=== PATIENT | male | born 1985 | race Caucasian/White ===

== ENCOUNTER 2019-01-01 11:37 | Emergency (ER) | payer MEDICAID ==
[~2019-01-01] VITALS: Ht 182.9 cm; Wt 89.8 kg
[2019-01-01] MEDS ORDERED: NKM (11:43)
--- NOTE | 2019-01-01 11:51 | NUR ---
ED Nurse Note: Patient walked into ED due to stitch removal on the left side of his face. patient is alert awake x4 ambulatory, breathing unlabored and even.
--- NOTE | 2019-01-01 11:55 | NUR ---
ED Nurse Note: patient reports he got stitches on 12/27/18 at [facility] ED.
[2019-01-01 12:02] VITALS: BP 135/85
--- NOTE | 2019-01-01 12:18 | Emergency Room Report ---
History of Present Illness General Chief Complaint: Wound Recheck/Suture Removal Source: Patient Present Illness HPI 33-year-old male with no significant past medical history here requesting suture removal 10 days post placement in the left jaw, temporal area, and left forehead. Patient complains of minimal numbness in the left jaw at the site of laceration repair however is able to move his cheeks and forehead without any problem. Denies tingling, pain, pain radiation. Denies fever and chills, has been applying Neosporin to the affected side. Denies other new injuries. Denies chest pain, shortness of breath, palpitation Allergies: Coded Allergies: No Known Allergies (Unverified , 01/01/19) Patient History Past Medical History: see triage record Past Surgical History: unable to obtain Pertinent Family History: none Immunizations: UTD Reviewed Nursing Documentation: PMH: Agreed; PSxH: Agreed Nursing Documentation-PM Past Medical History: No Stated History Review of Systems All Other Systems: negative except mentioned in HPI Physical Exam Vital Signs Date Time Temp Pulse Resp B/P (MAP) Pulse Ox O2 Delivery O2 Flow Rate FiO2 01/01/19 11:41 97.9 98 20 135/85 (102) 99 Room Air Sp02 EP Interpretation: reviewed, normal General Appearance: normal inspection, well appearing, no apparent distress, alert, GCS 15, non-toxic Head: normocephalic, other - Repaired laceration left maxilla, left forehead, left temporal Eyes: bilateral eye normal inspection, bilateral eye PERRL ENT: normal ENT inspection, hearing grossly normal, normal pharynx Neck: normal inspection, full range of motion, supple, no carotid bruits Respiratory: normal inspection, chest non-tender, lungs clear, normal breath sounds, no rhonchi, no wheezing Cardiovascular #1: normal inspection, regular rate, rhythm, no edema, no murmur , normal capillary refill Gastrointestinal: normal inspection, non tender, soft, no mass Genitourinary: no CVA tenderness Musculoskeletal: normal inspection, back normal, digits/nails normal, gait/ station normal Neurologic: normal inspection, alert, oriented x3, responsive, accountant budget III-XII nml as tested Psychiatric: normal inspection, judgement/insight normal, memory normal Skin: no rash, warm/dry, laceration - Repaired laceration on left forehead, maxilla, temporal Lymphatic: normal inspection, no adenopathy Medical Decision Making PA Attestation All diagnoses and treatment plans were reviewed and discussed with my supervising physician Dr. Zavala Diagnostic Impression: Primary Impression: Encounter for removal of sutures ER Course 33-year-old male with no significant past medical history here requesting suture removal 10 days post placement in the left jaw, temporal area, and left forehead. Patient complains of minimal numbness in the left jaw at the site of laceration repair however is able to move his cheeks and forehead without any problem. Denies tingling, pain, pain radiation. Denies fever and chills, has been applying Neosporin to the affected side. Denies other new injuries. Denies chest pain, shortness of breath, palpitation Ddx considered but are not limited to : Superficial laceration, deep laceration , tendon involvement with laceration, laceration with foreign body, removal sutures Vital signs: are WNL, pt. is afebrile H&PE are most consistent with: Suture removal ORDERS: none ED INTERVENTIONS: suture removal DISCHARGE: At this time pt. is stable for d/c to home. Will provide printed patient care instructions, and any necessary prescriptions. Care plan and follow up instructions have been discussed with the patient prior to discharge. Last Vital Signs Date Time Temp Pulse Resp B/P (MAP) Pulse Ox O2 Delivery O2 Flow Rate FiO2 01/01/19 12:02 97.9 94 20 135/85 99 Room Air Disposition: HOME, SELF-CARE Condition: Stable Patient Instructions: Wound Check Devyn Parsons Jan 01, 2019 12:18
[2019-01-01 12:21] VITALS: BP 135/85
--- NOTE | 2019-01-01 12:21 | NUR ---
ER DISCHARGE NOTE: Patient is cleared to be discharged per MIKE CARRASCO, pt is aox4, on room air, with stable vital signs. pt was given dc and prescription instructions, pt was able to verbalize understanding, pt id band removed without complications. pt is able to ambulate with steady gait. pt took all belongings.
== END 2019-01-01 12:21 | disposition home or self-care (01) ==
LOC: EMR 12:15
DX: Z48.02 Encounter for removal of sutures (principal); R20.2 Paresthesia of skin
CPT/HCPCS: 99281